=== PATIENT | female | born 1960 | race Caucasian/White ===

== ENCOUNTER 2019-09-01 17:15 | Inpatient (IN) | payer OTHER ==
[~2019-09-01] VITALS: Ht 165.1 cm; Wt 169.8 kg
[2019-09-01 17:30] VITALS: BP 198/86
[2019-09-01] MEDS ORDERED: RAMIPRIL5 MG PO (17:38)
[2019-09-01] MEDS ORDERED: LOPRESSOR50 PO (17:39)
[2019-09-01 17:52] LABS: ABSOLUTE BASOPHILS 0.1 thou/uL (0.0-0.2); ABSOLUTE EOSINOPHILS 0.2 thou/uL (0.0-0.7); ABSOLUTE LYMPHOCYTES 2.6 thou/uL (0.8-5.3); ABSOLUTE MONOCYTES 0.6 thou/uL (0.0-1.2); ABSOLUTE NEUTROPHILS 4.5 thou/uL (1.6-8.1); BASOPHILS 0.9 %; EOSINOPHILS 3.1 %; HEMATOCRIT 41.3 % (37.0-47.0); HEMOGLOBIN 14.2 gm/dL (12.0-15.0); LYMPHOCYTES 32.3 %; MCH 32.6 pg (26.0-34.0); MCHC 34.4 g/dL (28.0-37.0); MCV 94.9 fL (80.0-100.0); MONOCYTES 7.1 %; MPV 7.8 fl. (7.2-11.1); NUCLEATED RBCS 0 /100WBC; PLATELET COUNT* 264 thou/uL (150-400); POLYS 56.6 %; RBC 4.35 mil/uL (4.20-5.00); RDW-CV 12.3 % (10.5-14.5)
[2019-09-01 18:02] LABS: APTT 26.1 Seconds (25.0-31.3); PROTIME 10.5 Seconds (9.20-11.50)
[2019-09-01 18:05] LABS: CALCIUM 9.3 mg/dL (8.5-10.1); CREATININE 1.2 mg/dL (0.6-1.3); POTASSIUM 3.8 mmol/L (3.5-5.1)
[2019-09-01 18:17] LABS: ALBUMIN 3.6 g/dL (3.4-5.0); TOTAL BILIRUBIN 0.4 mg/dL (<0.1-1.0); TOTAL PROTEIN 7.2 g/dL (6.4-8.2)
--- NOTE | 2019-09-01 18:51 | NUR ---
VERBAL ORDER TO LOWER CARDIZEM TO 5MG/HR VIA DR URIBE
--- NOTE | 2019-09-01 19:00 | NUR ---
RECIEVED REPORT AND ASSUMED CARE OF PT.
[2019-09-01 20:00] VITALS: BP 148/73
--- NOTE | 2019-09-01 20:22 | NUR ---
REPORT GIVEN TO CAITIE MTZ. PT TRANSFERRED TO TELEMETRY FLOOR
[2019-09-01 20:23] VITALS: BP 148/66
[2019-09-01 20:45] VITALS: BP 148/73
[2019-09-02] VITALS: BP 131/62
[2019-09-02 04:00] VITALS: BP 158/78
--- NOTE | 2019-09-02 07:59 | NUR ---
PT RECIEVED FROM ED ROOM IN 227. ALERT AND ORIENTED X4. DENIES PAIN AND SOB. CARDIZEM DRIP RUNNING AT 5MG/HR. HR CONTROLLED, RUNNING ON SR. CALL LIGHT WITHIN REACH AND BED IN LOW POSITION. HOURLY ROUNDING DONE FOR PT SAFETY.
[2019-09-02 08:00] VITALS: BP 145/74
[2019-09-02 11:45] VITALS: BP 141/61
--- NOTE | 2019-09-02 12:57 | EKG ---
[place] [address] ELECTROCARDIOGRAM REPORT Name: MACK SUAREZ Room: [place] [address] ADM IN .R.#: [id number] Admission: 09/01/19 Attend Phys: Yannick Duke Discharge: Date of : 62 Report #: [id number] THIS REPORT FOR: //name// [facility] ED Test Date: 2019-09-01 Test Time: 17:34:38 Pat Name: MACK SUAREZ Department: Room: [facility] Gender: F Pole Cutter: : 1960 Requested By: Alan Oneill Order Number: [id number] MD: Matthew Blue Measurements Intervals [place] Rate: 122 P: MD: QRS: 13 QRSD: 91 T: 24 QT: 330 QTc: 470 Interpretive Statements Atrial fibrillation Baseline wander in lead(s) III No previous ECG available for comparison Electronically Signed On 09-02-2019 12:57:46 BINDER LOCKSTITCH by Matthew Blue [email or web address] <ELECTRONICALLY SIGNED> By: Temi Blue MD, [facility] 09/02/19 1257 1734 173 Temi Blue MD, FACC /EPI
--- NOTE | 2019-09-02 13:01 | NUR ---
ASSUMED CARE OF PT AT 0730. PT LYING IN BED. AT BEDSIDE. PT A&0X4, DENIES ANY PAIN OR SHORTNESS OF BREATH AT THIS TIME. PT TRACING SR ON THE AUTOMOBILE DAMAGE APPRAISER. ON RA SAT 98%. PT UP SBA TO BATHROOM. CARDIOLOGY CONSULT IN PLACE. ORDERS RECEIVED TO DISCONTINUE CARDIZEM GTT, ECHO AND NUCLEAR STRESS TEST IN AM. PT NPO AFTER MIDNIGHT. PT STARTED ON ELIQUIS AND FLECAINIDE. REFER TO EMAR. PT GOAL FOR TODAY IS REMAIN IN SINUS RHYTHM AND INCREASE ACTIVITY. AM ASSESSMENT CHARTED. MEDICATIONS PER DEC. PT REPOSITIONS SELF. HOURLY ROUNDING OBSERVED. BED IN LOW POSITION. CALL LIGHT WITHIN REACH. WILL CONTINUE PLAN OF CARE.
[2019-09-02 15:37] VITALS: BP 153/92
--- NOTE | 2019-09-02 18:42 | NUR ---
NO ACUTE CHANGES THROUGHOUT SHIFT. REFER TO CHARTING. PT PROGRESSING TOWARDS GOALS. PT CONTINUES TO TRACE SR ON THE DIRECTOR OF PUBLIC RELATIONS. DENIES ANY CHEST PAIN. NPO AFTER MIDNIGHT FOR NUCLEAR STRESS TEST IN AM. VISITORS AT BEDSIDE THIS AFTERNOON. MEDICATIONS PER DEC. PT REPOSITIONS SELF. HOURLY ROUNDING OBSERVED. BED IN LOW POSITION. CALL LIGHT WITHIN REACH. WILL CONTINUE PLAN OF CARE.
[2019-09-02 20:00] VITALS: BP 141/97
[2019-09-03] VITALS: BP 149/70
[2019-09-03 03:09] LABS: GLYCOHEMOGLOBIN (HGB A1C) 5.4 % (4.8-5.6)
[2019-09-03 04:00] VITALS: BP 139/80
[2019-09-03 04:39] LABS: HEMATOCRIT 40.6 % (37.0-47.0); HEMOGLOBIN 13.6 gm/dL (12.0-15.0); MCH 31.9 pg (26.0-34.0); MCHC 33.5 g/dL (28.0-37.0); MCV 95.3 fL (80.0-100.0); MPV 7.5 fl. (7.2-11.1); RBC 4.26 mil/uL (4.20-5.00); RDW-CV 12.1 % (10.5-14.5)
[2019-09-03 04:52] LABS: CALCIUM 8.9 mg/dL (8.5-10.1); CREATININE 1.1 mg/dL (0.6-1.3); MAGNESIUM 1.9 mg/dL (1.8-2.4); POTASSIUM 4.3 mmol/L (3.5-5.1)
--- NOTE | 2019-09-03 05:43 | NUR ---
PT CARE ASSUMED AT 1930. SAT MAINTAINED IN RA. ALERT AND ORIENTED X4. CALL LIGHT WITHIN REACH AND BED IN LOW POSITION. DENIES PAIN AND SOB. HOURLY ROUNDING DONE FOR PT SAFETY.
--- NOTE | 2019-09-03 07:53 | CON ---
[address] [address] CONSULTATION Name: MACK SUAREZ Room: [place] [address] ADM IN M.R.#: [id number] Admission: 09/01/19 Attend Phys: Yannick Duke Discharge: Date of : 62 Report #: [id number] THIS REPORT FOR: //name// CC: Guicho Gasca CARDIOLOGY CONSULTATION HISTORY OF PRESENT ILLNESS: I was asked by Dr. Gasca to see this 59-year-old white female in Cardiology consultation for evaluation and treatment of paroxysmal atrial fibrillation. This lady additionally has a past history of essential hypertension as well as morbid obesity and obstructive sleep apnea. Also, she had cardiomegaly on her chest x-ray when she was admitted. Otherwise, her chest x-ray was unremarkable. She had sudden onset of lightheadedness yesterday. She had this several times before, especially before she started CPAP. She really had not had any of these episodes of atrial fibrillation since she had CPAP. She was known to have atrial fibrillation in the more distant past. She could feel some vague sensation in her chest that she termed palpitations. Also, she said her blood pressure was elevated, that occurred yesterday afternoon. She finally came to the emergency room and was found to be in atrial fibrillation. She was started on Cardizem drip and promptly reverted to normal sinus rhythm. She did not have any chest pain or any of this. She did not have any unusual dyspnea on exertion or shortness of breath at rest. PAST MEDICAL HISTORY: As described above. HOME MEDICATIONS: Include ramipril 5 mg b.i.d. and metoprolol tartrate 50 mg b.i.d. FAMILY HISTORY: Remarkable for her father having atrial fibrillation and he has had a pacemaker. I believe her mother has some sort of cardiac disease, but there is no coronary artery disease in the family. No one has ever had a heart attack. This lady has never had a heart attack, chest pain, or angina. Family history is as described above and is unremarkable otherwise. DIAGNOSTIC STUDIES: Her EKG when she came to the emergency room shows atrial fibrillation with a rapid ventricular response of 122 beats per minute; otherwise, it is a fairly unremarkable EKG. Today on her EKG, she is in sinus rhythm and it is fairly normal. SOCIAL HISTORY: She does not smoke, drink, or use illegal drugs. REVIEW OF SYSTEMS: Negative for some 40 complaints in 14 different system categories. Please see review of system form for details and negatives in review of systems. ALLERGIES: SHE IS ALLERGIC TO SULFA; otherwise, [place] [address] CONSULTATION Name: MACK SUAREZ Room: [address] IN ..#: [id number] Admission: 09/01/19 Attend Phys: Yannick Duke Discharge: Date of : 62 Report #: [id number] PHYSICAL EXAMINATION: GENERAL: She presents as a well-developed, well-nourished white female, who is morbidly obese and in no acute distress. VITAL SIGNS: Her pulse was 85 and regular, blood pressure is 147/68, respirations are 20 and regular, temperature is 96.5, and her O2 saturation was normal at 98%. HEENT: His head was atraumatic. Eyes were clear. NECK: Supple. There is no jugular venous distention or hepatojugular reflux. Thyroid is not enlarged. There is no adenopathy. SKIN: Warm and dry. Mucous membranes are moist. LUNGS: Clear to auscultation and percussion. HEART: Revealed normal first and second heart sound. There is soft S4. There is no S3. There are no murmurs, rubs, thrills, heaves, or gallops. PMI is nondisplaced. ABDOMEN: Soft, flat, and nontender. No palpable masses, no organomegaly. EXTREMITIES: Reveal no cyanosis, clubbing, or edema. NEUROLOGIC: The patient mented normally, talked normally, and moved all extremities normally. IMPRESSION: 1. Paroxysmal atrial fibrillation at this time initially with a rapid ventricular response. 2. Essential hypertension. 3. Morbid obesity. 4. Obstructive sleep apnea. 5. Cardiomegaly. RECOMMENDATIONS: 1. Start her on Eliquis for anticoagulation. Her CHADS score is 2. 2. I would start her on flecainide to prevent the episodes. She is already on adequate dose of beta-robert to control heart rate if she does go into atrial fibrillation. She should have a nuclear stress test and an echo. Thank you very much for asking me to see the patient. If there are any questions, please feel free to contact me. <ELECTRONICALLY SIGNED> By: Temi Blue MD, FACC 09/03/19 0753 0932 [id number]. Matthew Blue MD, FACC /nt
[2019-09-03 08:00] VITALS: BP 137/99
[2019-09-03 12:13] VITALS: BP 147/80
--- NOTE | 2019-09-03 14:49 | 2DMMODE ---
[place] [address] 2 D/M-MODE ECHOCARDIOGRAM Name: ERICKMACK Hartman Room: [facility]1 ADM IN [facility]#: [id number] Admission: 09/01/19 Attend Phys: Sudeep Gasca Discharge: Date of : 62 Date of Service: 09/03/19 1448 Report #: [id number] THIS REPORT FOR: //name// APPROVED REPORT Study performed: 09/03/2019 11:34:03 EXAM: Comprehensive 2D, Doppler, and color-flow Echocardiogram Patient Location: In-Patient Room #: 227 Status: routine BSA: 2.37 HR: 77 bpm BP: 137/99 mmHg Rhythm: NSR Other Information Study Quality: Good Indications Atrial Fibrillation Cardiomegaly 2D Dimensions IVSd: 11.47 (7-11mm) LVOT Diam: 19.64 (18-24mm) LVDd: 49.99 mm PWd: 10.01 (7-11mm) Ascending Ao: 26.94 (22-36mm) LVDs: 31.86 (25-40mm) Aortic Root: 32.15 mm Volumes Left Atrial Volume (Systole) LA ESV Index: 32.80 mL/m2 Aortic Valve AoV Peak Avni.: 1.57 m/s AO Peak Gr.: 9.87 mmHg LVOT Max P.24 mmHg AO Mean Gr.: 5.94 mmHg LVOT Mean P.49 mmHg LVOT Max V: 1.43 m/s AO V2 VTI: 31.34 cm LVOT Mean V: 0.84 m/s CIARRA (VTI): 2.72 cm2 LVOT V1 VTI: 28.10 cm Mitral Valve E/A Ratio: 1.04 MV Decel. Time: 229.99 [place] [address] 2 D/M-MODE ECHOCARDIOGRAM Name: MACK SUAREZ Room: [address] IN .R.#: [id number] Admission: 09/01/19 Attend Phys: Sudeep Gasca Discharge: Date of : 62 Date of Service: 09/03/19 1448 Report #: [id number] MV E Max Avni.: 0.91 m/s MV PHT: 66.70 ms MVA (PHT): 3.30 cm2 TDI E/Lateral E': 8.27 E/Medial E': 7.00 Medial E' Avni.: 0.13 m/s Lateral E' Avni.: 0.11 m/s Pulmonary Valve PV Peak Avni.: 0.97 m/s PV Peak Gr.: 3.73 mmHg Left Ventricle The left ventricle is normal size. There is normal LV segmental wall motion. There is normal left ventricular wall thickness. Left ventricular systolic function is normal. The left ventricular ejection fraction is within the normal range. LVEF is 60-65%. The left ventricular diastolic function is normal. Right Ventricle The right ventricle is normal size. The right ventricular systolic function is normal. Atria Left atrium is mildly dilated. The right atrium size is normal. Aortic Valve The aortic valve is normal in structure. No aortic regurgitation is present. There is no aortic valvular stenosis. Mitral Valve The mitral valve is normal in structure. There is no mitral valve regurgitation noted. No evidence of mitral valve stenosis. Tricuspid Valve The tricuspid valve is normal in structure. Trace tricuspid regurgitation. Unable to assess PA pressure. Pulmonic Valve Pulmonic valve is not well visualized. There is no pulmonic valvular regurgitation. Great Vessels The aortic root is normal in size. IVC [place] [address] 2 D/M-MODE ECHOCARDIOGRAM Name: MACK SUAREZ Room: [address] IN [facility]#: [id number] Admission: 09/01/19 Attend Phys: Sudeep Gasca Discharge: Date of : 62 Date of Service: 09/03/19 1448 Report #: [id number] Pericardium There is no pericardial effusion. <Conclusion> LVEF is 60-65%. Left atrium is mildly dilated. <ELECTRONICALLY SIGNED> By: Shimon Bacon MD, FACC 11/11/19 1448 1448 1448 Shimon Bacon MD, [facility] /INF
--- NOTE | 2019-09-03 15:12 | EKG ---
[place] [address] ELECTROCARDIOGRAM REPORT Name: MACK SUAREZ Room: [place] [address] ADM IN .R.#: [id number] Admission: 09/01/19 Attend Phys: Yannick Duke Discharge: Date of : 62 Report #: [id number] THIS REPORT FOR: //name// [facility] Test Date: 2019-09-02 Test Time: 08:55:53 Pat Name: MACK SUAREZ Department: Room: [place] [address] Gender: F Manager Exchange: : 1960 Requested By: Sudeep Gasca Order Number: [id number] Renetta MD: Shimon Bacon Measurements Intervals [place] Rate: 82 P: 20 IA: 141 QRS: 23 QRSD: 90 T: 30 QT: 383 QTc: 448 Interpretive Statements Sinus rhythm Borderline low voltage, extremity leads Compared to ECG 09/01/2019 17:34:38 Atrial fibrillation no longer present Electronically Signed On 09-03-2019 15:12:32 BRAZER CONTROLLED ATMOSPHERIC FURNACE by Shimon Bacon [email or web address] <ELECTRONICALLY SIGNED> By: Shimon Bacon MD, [facility] 09/03/19 1512 0855 Shimon Bacon MD, FAC /EPI
[2019-09-03 16:09] VITALS: BP 153/86
--- NOTE | 2019-09-03 16:11 | NUR ---
SW attempted to meet with pt; pt busy talking on the phone. Pt lives at home with and is independent; no known dc needs at this time.
--- NOTE | 2019-09-03 16:52 | NUR ---
pt up in room with steady gait. Pt denies chest pain or SOA. Stress test not done this am d/t pt's weight. NSR on monitor.Plan to dc in am
[2019-09-03 20:00] VITALS: BP 147/92
[2019-09-04] VITALS: BP 151/81
[2019-09-04 04:00] VITALS: BP 151/87
[2019-09-04 08:00] VITALS: BP 147/69
--- NOTE | 2019-09-04 11:16 | EKG ---
[place] [address] ELECTROCARDIOGRAM REPORT Name: MACK SUAREZ Room: [place] [address] ADM IN M.R.#: [id number] Admission: 09/01/19 Attend Phys: Yannick Duke Discharge: Date of : 62 Report #: [id number] THIS REPORT FOR: //name// [facility] Test Date: 2019-09-04 Test Time: 08:28:02 Pat Name: MACK SUAREZ Department: Room: [place] [address] Gender: F Continuous Improvement Black Belt: : 1960 Requested By: Shimon Bacon Order Number: [id number] Renetta MD: Prakash Walker Measurements Intervals [place] Rate: 73 P: 33 [place]: 166 QRS: 27 QRSD: 84 T: 33 QT: 390 QTc: 430 Interpretive Statements Sinus rhythm Borderline low voltage, extremity leads Compared to ECG 09/02/2019 08:55:53 No significant changes Electronically Signed On 09-04-2019 11:15:53 RADIOLOGY TRANSCRIPTIONIST by Prakash Walker [email or web address] <ELECTRONICALLY SIGNED> By: Prakash Walker MD, [facility] 09/04/19 1115 7 7 Prakash Walker MD, FACC /EPI
[2019-09-04] MEDS ORDERED: ELIQUIS5 MG PO (11:42)
[2019-09-04] MEDS ORDERED: FLECAINIDE ACET50 M1 PO (11:42)
[2019-09-04 12:41] VITALS: BP 147/69
[2019-09-04 13:00] VITALS: BP 135/80
--- NOTE | 2019-09-04 15:17 | NUR ---
WAS ASKED BY DR CHANDLER TO CHECK COST FOR ELIQUIS. PT HAS COMMERCIAL INSURANCE, GAVE DISCOUNT CARDS FOR 1ST MONTH FREE AND $10/MONTH THEREAFTER WITH INFO
--- NOTE | 2019-09-04 16:00 | NUR ---
ASSUMED PT CARE AT 0700, PT A&O X4, VSS, RA, ROBOTIC TOY INVENTOR TRACING SINUS RHYTHM, FULL ASSESSMENT CHARTED. PT DISCHARGED HOME AT APPROX 1550 WITH MOTHER, EDUCATED ON ALL DISCHARGE INSTRUCTIONS INCLUDING MEDICATIONS AND FOLLOW UP APPOINTMENTS. IV AND ROBOTIC TOY INVENTOR REMOVED, HOURLY ROUNDING COMPLETED.
== END 2019-09-04 15:20 | disposition home or self-care (01) | DRG 309 ==
LOC: M.ERS 17:15 → M.TBA-ER 18:18 → M.2W 18:18
PROVIDERS: Emergency Medicine Emergency Medical Services; Internal Medicine; ADMIT Internal Medicine
PROC: 5A09357 Assistance with Respiratory Ventilation, Less than 24 Consecutive Hours, Continuous Positive Airway Pressure (ICD-10-PCS; principal; 2019-09-01)
PROC: 5A09357 Assistance with Respiratory Ventilation, Less than 24 Consecutive Hours, Continuous Positive Airway Pressure (ICD-10-PCS; 2019-09-02)
PROC: 5A09357 Assistance with Respiratory Ventilation, Less than 24 Consecutive Hours, Continuous Positive Airway Pressure (ICD-10-PCS; 2019-09-03)
DX: I48.0 Paroxysmal atrial fibrillation (principal); Z68.44 Body mass index [BMI] 60.0-69.9, adult; E66.01 Morbid (severe) obesity due to excess calories; I10 Essential (primary) hypertension; G47.33 Obstructive sleep apnea (adult) (pediatric); R73.9 Hyperglycemia, unspecified; Z79.899 Other long term (current) drug therapy; Z88.2 Allergy status to sulfonamides; Z82.49 Family history of ischemic heart disease and other diseases of the circulatory system

== ENCOUNTER 2021-08-07 11:24 | Emergency (ER) | payer OTHER ==
[~2021-08-07] VITALS: Ht 165.1 cm; Wt 93.0 kg
[~2021-08-07 11:24] MED LIST: BARIATRIC MV-I1 EACH PO; CALCITRATE200 MG PO; ELIQUIS5 MG PO; FLECAINIDE ACET50 M1 PO; LOPRESSOR50 MG PO; LOPRESSOR50 PO; MULTAQ400 MG PO; NASCOBAL1 EACH NASAL; NORCO 5-325 TA1 EAC2 PO; OMEPRAZOLE 20 M20 M1 PO; RAMIPRIL5 MG PO
[2021-08-07 11:53] VITALS: BP 160/77
== END 2021-08-07 12:47 | disposition left against medical advice (07) ==
LOC: M.ERS 11:24
DX: Z44.9 Encounter for fitting and adjustment of unspecified external prosthetic device (principal); Z53.21 Procedure and treatment not carried out due to patient leaving prior to being seen by health care provider